=== PATIENT | male | born 2000 | race African-American/Black ===

== ENCOUNTER 2019-03-15 02:07 | Emergency (ER) | payer BC ==
[~2019-03-15] VITALS: Ht 185.4 cm; Wt 77.1 kg
[2019-03-15 05:15] VITALS: BP 130/75
== END 2019-03-15 05:15 | disposition home or self-care (01) ==
LOC: ED 02:07
DX: S93.491A Sprain of other ligament of right ankle, initial encounter (principal); J45.909 Unspecified asthma, uncomplicated; X58.XXXA Exposure to other specified factors, initial encounter; Y93.67 Activity, basketball; Y92.89 Other specified places as the place of occurrence of the external cause; Y99.8 Other external cause status
CPT/HCPCS: J1885; Q0092